=== PATIENT | female | born 1990 | race American Indian/Alaskan Native ===

== ENCOUNTER 2017-10-27 07:23 | Inpatient (IN) | payer MEDICAID ==
[2017-10-27] MEDS ORDERED: Rocuronium 50 MG/5 ML Vial ONE ×2 (07:47→10:57)
[2017-10-27] MEDS ORDERED: Ondansetron 4 MG/2 ML SDV ONE (07:47)
[2017-10-27] MEDS ORDERED: Propofol 200 MG/20 ML SDV ONE (07:47)
[2017-10-27] MEDS ORDERED: Dexamethasone 4 MG/ML SDV ONE (07:47)
[2017-10-27] MEDS ORDERED: Succinylcholine/Normal Saline 200 MG/10 ML Syringe ONE (07:49)
[2017-10-27] MEDS ORDERED: Neostigmine Methylsulfate 1 MG/ML 5 ML Syringe ONE (07:49)
[2017-10-27] MEDS ORDERED: Gabapentin 300 MG Cap PO ONE (08:00)
[2017-10-27] MEDS ORDERED: Acetaminophen 500 MG Tab PO ONE (08:00)
[2017-10-27] MEDS ORDERED: Scopolamine 1.5 MG Transdermal Patch TOP SCH (08:00)
[2017-10-27] MEDS ORDERED: Dextrose 5%-Lactated Ringers 1,000 ML IV SCH ×2 (08:00→14:00)
[2017-10-27] MEDS ORDERED: Celecoxib 200 MG Cap PO ONE (08:00)
[2017-10-27] MEDS ORDERED: Lactated Ringers 1,000 ML ONE (08:38)
[2017-10-27] MEDS ORDERED: Ropivacaine 60 ML, Dexamethasone 8 MG, EPINEPHrine 0.4 MG, Sodium Chloride 0.9% 17.6 ML NERVRT SCH ×4 (09:00)
[2017-10-27] MEDS ORDERED: Lidocaine 2% 100 MG/5 ML Syringe IVPUSH ONE (09:00)
[2017-10-27] MEDS ORDERED: Ketamine 500 MG/5 ML MDV IV SCH (09:00)
[2017-10-27] MEDS: cefOXitin 2 GM in Premix Bag 1 BAG IV ONE ×2 (09:57→13:29)
[2017-10-27] MEDS: cefOXitin 2 GM Vial ONE ×2 (10:45→11:47)
[2017-10-27] MEDS ORDERED: Sugammadex Sodium 200 MG/2 ML VIAL ONE (11:52)
[2017-10-27] MEDS ORDERED: fentaNYL 100 MCG/2 ML SDV IVPUSH ONE (12:11)
[2017-10-27] MEDS ORDERED: hydrOXYzine HCl 100 MG/2 ML SDV IM ONE (12:11)
[2017-10-27] MEDS: Lidocaine 0.4%/D5W 2 GM/500 ML BAG IV SCH (13:02)
[2017-10-27] MEDS: SCOPOLAMINE PATCH CHECK TOP SCH (13:46)
[2017-10-27] MEDS ORDERED: Labetalol 20 MG/4 ML Syringe IVPUSH PRN (14:00)
[2017-10-27] MEDS ORDERED: Metoclopramide 10 MG/2 ML SDV IVPUSH PRN (14:00)
[2017-10-27] MEDS ORDERED: hydrOXYzine HCl 100 MG/2 ML SDV IM PRN (14:00)
[2017-10-27] MEDS ORDERED: Ondansetron 4 MG/2 ML SDV IVPUSH PRN (14:00)
[2017-10-27] MEDS ORDERED: diphenhydrAMINE 50 MG/ML SDV IVPUSH PRN (14:00)
[2017-10-27] MEDS: Gabapentin 250 MG/5 ML Solution ML 470 ML Bottle PO SCH ×2 (14:41→20:17)
[2017-10-27] MEDS: cefOXitin 2 GM in Sodium Chloride 0.9% 50 ML IV SCH ×2 (15:12→20:18)
[2017-10-27] MEDS: Acetaminophen Soln 650 MG/20.3 ML UD Cup PO SCH ×2 (15:12→20:17)
[2017-10-27] MEDS ORDERED: Pantoprazole 40 MG Vial IVPUSH SCH (16:00)
[2017-10-27] MEDS ORDERED: MVI, Adult with Vitamin K 10 ML, Thiamine 200 MG, Chromium/Copper/Mang/Selen/Zn 1 ML in... IV SCH ×4 (16:00)
[2017-10-27] MEDS: Insulin Aspart 100 Units/ML 3 ML Pen SUBCUT PRN ×2 (16:58→22:04)
[2017-10-27] MEDS: Heparin Sodium 5,000 Units/ML Vial SUBCUT SCH (17:54)
[2017-10-28] MEDS ORDERED: Iohexol 647 MG/ML 50 ML SDV PO SCH (00:30)
[2017-10-28] MEDS: Lidocaine 0.4%/D5W 2 GM/500 ML BAG IV SCH (01:23)
[2017-10-28] MEDS: Acetaminophen Soln 650 MG/20.3 ML UD Cup PO SCH ×4 (03:55→22:05)
[2017-10-28] MEDS: cefOXitin 2 GM in Sodium Chloride 0.9% 50 ML IV SCH ×2 (03:55→08:44)
[2017-10-28] MEDS: Insulin Aspart 100 Units/ML 3 ML Pen SUBCUT PRN ×2 (04:01→09:54)
[2017-10-28] MEDS: Heparin Sodium 5,000 Units/ML Vial SUBCUT SCH ×2 (05:47→18:05)
[2017-10-28] MEDS ORDERED: Lactated Ringers 1,000 ML IV SCH (07:45)
[2017-10-28] MEDS: Celecoxib 200 MG Cap PO SCH (07:58)
[2017-10-28] MEDS: Gabapentin 250 MG/5 ML Solution ML 470 ML Bottle PO SCH ×3 (08:44→22:05)
[2017-10-28] MEDS: SCOPOLAMINE PATCH CHECK TOP SCH (08:44)
[2017-10-28] MEDS: Levothyroxine 100 MCG Tab PO SCH (08:45)
--- NOTE | 2017-10-28 09:09 | CR ---
UGI wo KUB HISTORY: Evaluate Kit-en-Y. COMPARISON: CT scan 06/09/2017. FINDINGS: Gastric remnant appears normal surgical drain present in this region. No extravasation seen . No obstruction. No evidence for complication.
[2017-10-28] MEDS ORDERED: Pantoprazole 40 MG Delayed-Release Granules 1 Packet PO SCH (16:00)
[2017-10-28] MEDS ORDERED: MVI, Adult with Vitamin K 10 ML, Thiamine 200 MG, Chromium/Copper/Mang/Selen/Zn 1 ML in... IV SCH ×4 (16:00)
--- NOTE | 2017-10-28 16:43 | PN ---
DATE OF SERVICE: 10/28/2017 The patient has been afebrile with stable vital signs and overall is doing well. Oral intake is fairly high. Blood sugars are running around in the 200s. We did check a hemoglobin A1c yesterday which came back at 7.2 documented that the patient is diabetic. At this point, I think today rather than starting any antidiabetic medication, we will switch her IV to LR and see what happens with the blood sugars. We will have the staff educator see the patient today as well. We will restart her Synthroid at somewhat higher doses as the most recent TSH was still somewhat high at around 6. Bienvenido Mckinney MD /[id number]
[2017-10-28] MEDS ORDERED: Ondansetron 4 MG Tab.DIS PO PRN (17:07)
[2017-10-29] MEDS: Acetaminophen Soln 650 MG/20.3 ML UD Cup PO SCH ×2 (04:10→08:15)
[2017-10-29] MEDS: Heparin Sodium 5,000 Units/ML Vial SUBCUT SCH (05:32)
[2017-10-29 07:28] VITALS: BP 104/58
[2017-10-29] MEDS: Celecoxib 200 MG Cap PO SCH (07:33)
[2017-10-29] MEDS: Levothyroxine 100 MCG Tab PO SCH (07:33)
[2017-10-29] MEDS: Gabapentin 250 MG/5 ML Solution ML 470 ML Bottle PO SCH (08:15)
[2017-10-29] MEDS: SCOPOLAMINE PATCH CHECK TOP SCH (08:16)
[2017-10-29] MEDS ORDERED: Cyanocobalamin (Vitamin B12) 1,000 MCG/ML SDV IM ONE (09:00)
--- NOTE | 2017-10-30 01:26 | DISCH ---
ADMISSION DIAGNOSES: Morbid obesity, impaired fasting glucose, nonalcoholic steatohepatitis, intrauterine device, tobacco use disorder in remission. DISCHARGE DIAGNOSES: 1. Status post Kit-en-Y gastric bypass surgery, liver biopsy, repair of diaphragmatic hernia, and excision of mediastinal lipoma for morbid obesity, hepatomegaly, diaphragmatic hernia, and mediastinal lipoma. Date of surgery, 10/27/2017. 2. New diagnosis diabetes type 2 confirmed by hemoglobin A1c of 7.2. HISTORY: Steffany Mckinney is a 27-year-old female with longstanding history of morbid obesity. After preoperative evaluation, discussion of possible risks, and possible complications, she wished to proceed with surgical procedure. HOSPITAL COURSE: Steffany had her hemoglobin A1c checked on admission, it was 7.2. Blood sugars were continued to be watched. She had no operative complications. On postop day #1, her upper GI was negative. She was started on a step-2 gastric bypass diet without cereal. On postop day #3, she was able to be discharged to home. Blood sugars were 129 and 126. Oral intake was adequate. Vital signs stable. She received adequate dietary and diabetic education. She was discharged on 10/29/2017 without any complications. PHYSICAL EXAMINATION: GENERAL: Steffany Mckinney is a 27-year-old female. VITAL SIGNS: Height is 5 feet 7 inches. Weight is 332 pounds. TPR is 98.1, 70, 16. Blood pressure 104/58. HEENT: Negative. NECK: Supple. HEART: Regular rate and rhythm. LUNGS: Clear. ABDOMEN: Incisions look good. 4x4 over KATY drain site. Abdominal binder is on. EXTREMITIES: Without peripheral edema. DISPOSITION: Discharged to home. CONDITION: Stable and improving. FOLLOWUP APPOINTMENTS: Melany Mendes PA-C on 11/05/2017 at 11 a.m. HOME MEDICATIONS: 1. Tylenol 650 mg q.6 hours for pain. 2. Celebrex 200 mg p.o. daily for 14 days. 3. Synthroid 100 mcg p.o. daily. 4. Zofran ODT 4 mg q.4 hours p.r.n. pain. DISCHARGE DIET: Step 2 gastric bypass diet without cereal. Drink 8 to 10 glasses of water a day. ACTIVITY: No lifting greater than 10 pounds for 2 weeks. Driving, do not drive for 1 week. Shower bathing, may shower. DISCHARGE INSTRUCTIONS: Notify provider if any fever, increased pain, nausea, or vomiting. Keep site clean and dry. Wear abdominal binder for 2 weeks and then as tolerated. SPECIAL INSTRUCTIONS: Is to use incentive spirometer 10 times every hour while awake and check blood sugars twice a day morning and before bed. Bring record of blood sugar results to clinic appointments. Keep the record of protein and water intake and bring to clinic appointments.
--- NOTE | 2017-10-30 09:24 | OR ---
DATE OF PROCEDURE: 10/27/2017 PREOPERATIVE DIAGNOSIS: Morbid obesity. POSTOPERATIVE DIAGNOSES: 1. Morbid obesity. 2. Marked hepatomegaly. 3. Paraesophageal diaphragmatic hernia. 4. Mediastinal lipoma. OPERATIVE PROCEDURE: 1. Laparoscopic Kit-en-Y gastric bypass with long limb gastroenterostomy (67131). 2. Bartolo-Cut needle liver biopsy (42718). 3. Repair of paraesophageal diaphragmatic hernia (23187). 4. Excision of mediastinal lipoma (66929). ANESTHESIA: General. BLENDER: Melany Mendes PA-C INDICATIONS FOR PROCEDURE: This is a 27-year-old female presenting with longstanding morbid obesity and increasingly significant comorbidities. After preoperative evaluation and discussion, she wished to proceed with a gastric bypass procedure. Potential risks of procedure including bleeding, infection, leaks from various GI tract closures, problems with bowel obstruction over time as well as possibility of cardiopulmonary, septic, or hemorrhagic complications leading to were discussed, and the patient wishes to proceed. DETAILS OF PROCEDURE: The patient was taken to the operating room, placed in a supine position. After general endotracheal anesthesia was induced, she was converted to a lithotomy position and an orogastric tube placed. The abdomen was then prepped and draped. At 15 cm inferior and 5 cm left of xiphoid process, a transverse incision was made and peritoneal cavity entered under direct vision with an Optiview trocar, inflated to 15 mmHg pressure with CO2. Laparoscope was reinserted. No underlying trocar insertion site injuries were seen. Following this, 5 additional trocars were placed across over mid abdomen, bilateral transversus abdominis plane blocks were placed using standard solution, with the location of the needle tip being directly visualized within the transversus abdominis plane. The liver was noted to be markedly fatty infiltrated and somewhat enlarged, 2 to 3 times normal. Bartolo-Cut biopsies were obtained from the left lobe of the liver. Minimal bleeding from the biopsy site was controlled with electrocautery. The omentum was then divided in midline up to the level of the transverse colon. This allowed identification of the small bowel with ligament of Treitz. Small bowel was then traced out 200 cm distal to that point, was divided transversely with a RENAE stapler. Small bowel was then traced out an additional 200 cm where the [id number] enteroenterostomy was accomplished with internal firing of the Endo-RENAE 60 mm stapler. The common opening was then closed transversely with the same stapler and angles anastomosed, and mesenteric defect approximated with some 0 Ethibond stitch along with 4 mL of fibrin sealant. The Kit limb was then mobilized in an antecolic fashion up to the level of the gastroesophageal junction without tension. The liver was retracted anteriorly. The patient was noted to have a moderate-sized paraesophageal diaphragmatic hernia. The peritoneum overlying this was incised and reflected downward. This was further dissected, mediastinal lipoma was encountered, and this was excised and sent as a pathologic specimen. The diaphragmatic hernia repair was accomplished with 0 Ethibond sutures reinforced with PTFE pledgets anteriorly. At this point, the gastrointestinal catheter was inflated with 15 mL and pulled up snugly against the EG junction, gastric wall over the apex balloon was marked with electrocautery, and balloon catheter deflated, pulled up into the esophagus. The lesser omental tissue adjacent to the gastric cardia was incised allowing dissection behind the stomach at that level. Pouch formation was initiated with a transverse firing of the RENAE stapler at the level of the cauterized yvrose on the gastric cardia and then completed with some additional RENAE staple firings, up to and through the angle of His. Upon completion of the pouch, both staple lines were noted to be intact. The anvil of a 25 mm EEA stapler was attached to Dallas sump type tube; it was brought down through the mouth and taken out through a small opening in the gastric pouch allowing the anvil to be likewise pulled down to within the gastric pouch. Divided end of the Kit limb was then opened and the main body EEA stapler passed several centimeters in to the lumen of the small bowel, brought up to the anvil, thus creating the gastrojejunostomy. Upon removal of stapler, double donuts of mucosa were noted within the small bowel, was closed off with a vascular staple line. Gastrojejunostomy was reinforced with some 0 Ethibond seromuscular stitch along with 4 mL of fibrin sealant. The leak test was accomplished with injection of 120 mL of air in the gastric pouch while submerged with cefoxitin-containing saline solution. No leaks were identified. A single Ken-Minaya drain was then placed adjacent to gastrojejunostomy, taken out through subcostal trocar sites with no further problems noted. Trocars were removed and the peritoneal cavity was deflated. Incisions were closed with some 4-0 Vicryl skin stitch which was also used to fix the drain. Dressing was applied. The patient was taken to the recovery room in satisfactory condition. There were no evident complications. Physician photo studio assistant, Melany Mendes, played an essential role in assisting in this case, helping to position the patient, retract structures as needed, and suturing and cutting sutures as indicated. Her presence improved patient safety and decreased operative time. Bienvenido Mckinney MD /[id number]
== END 2017-10-29 10:10 | disposition home or self-care (01) | DRG 621 ==
LOC: JP.SDS 07:23 → JP.MS 07:23 → EDSTATUS 13:00 → JP.2SS 13:31
PROVIDERS: ADMIT Surgery; ATTEND Surgery
PROC: 0D164ZA Bypass Stomach to Jejunum, Percutaneous Endoscopic Approach (ICD-10-PCS; principal; 2017-10-27)
PROC: 0BQT4ZZ Repair Diaphragm, Percutaneous Endoscopic Approach (ICD-10-PCS; 2017-10-27)
PROC: 0FB24ZX Excision of Left Lobe Liver, Percutaneous Endoscopic Approach, Diagnostic (ICD-10-PCS; 2017-10-27)
PROC: 0WBC4ZX Excision of Mediastinum, Percutaneous Endoscopic Approach, Diagnostic (ICD-10-PCS; 2017-10-27)
PROC: 3E0T3BZ Introduction of Anesthetic Agent into Peripheral Nerves and Plexi, Percutaneous Approach (ICD-10-PCS; 2017-10-27)
DX: E66.01 Morbid (severe) obesity due to excess calories (principal); Z68.43 Body mass index [BMI] 50.0-59.9, adult; K44.9 Diaphragmatic hernia without obstruction or gangrene; K75.81 Nonalcoholic steatohepatitis (NASH); E11.9 Type 2 diabetes mellitus without complications; E03.9 Hypothyroidism, unspecified; D17.4 Benign lipomatous neoplasm of intrathoracic organs; Z87.891 Personal history of nicotine dependence
CPT/HCPCS: 36415; 74240; 74240-26; 82962; 83036; 86850; 86900; 86901; 88304; 88305; 88307; 88313; 88342; 94762; A9270-GY; C9113; C9399; J0171; J0694; J1100; J1644; J2001; J2405; J2704; J2795; J3010; J3410; J3411; J3420; J7030; J7040; J7042; J7050; J7120; Q9967

== ENCOUNTER 2017-12-19 06:33 | Day surgery (SDC) | payer MEDICAID ==
[2017-12-19] MEDS ORDERED: Cyanocobalamin (Vitamin B12) 1,000 MCG/ML SDV IM ONE (07:15)
[2017-12-19] MEDS ORDERED: Lactated Ringers 1,000 ML IV SCH (07:15)
[2017-12-19] MEDS ORDERED: Midazolam 1 MG/ML 2 ML SDV ONE (07:24)
[2017-12-19] MEDS ORDERED: fentaNYL 100 MCG/2 ML SDV ONE (07:24)
[2017-12-19] MEDS ORDERED: Propofol 200 MG/20 ML SDV ONE (07:24)
[2017-12-19] MEDS ORDERED: Glycopyrrolate 0.2 MG/ML 2 ML SDV IVPUSH ONE (07:30)
[2017-12-19] MEDS ORDERED: MVI, Adult with Vitamin K 10 ML, Thiamine 100 MG, Chromium/Copper/Mang/Selen/Zn 1 ML in... IV ONE ×4 (08:15)
[2017-12-19 10:34] VITALS: BP 95/58
--- NOTE | 2017-12-25 14:50 | OR ---
DATE OF PROCEDURE: 12/19/2017 PREOPERATIVE DIAGNOSIS: Strictured gastrojejunostomy. POSTOPERATIVE DIAGNOSIS: Strictured gastrojejunostomy. OPERATIVE PROCEDURE: Upper GI endoscopy with dilation of gastrojejunostomy (28778). ANESTHESIA: IV sedation. INDICATION FOR PROCEDURE: This is a 27-year-old status post Kit-en-Y gastric bypass, presenting with stricturing at her gastrojejunostomy. Plan is to proceed with an upper GI endoscopy with dilation as indicated. Potential risks including bleeding and perforation were discussed, and the patient wishes to proceed. DESCRIPTION OF PROCEDURE: The patient was taken to the operating room and placed in a left lateral decubitus position. IV sedation was administered, after which the upper GI endoscope was passed orally through the length of the esophagus and into the gastric pouch. The patient was noted to have moderate stricture present. A Bard gastrointestinal balloon catheter was centered across the anastomosis and inflated to 45-Setswana size, this was held in position for 1 minute, after which the balloon catheter was deflated and withdrawn. The scope could easily then be passed through the anastomosis. No complications were noted. The scope was then withdrawn. The procedure concluded. The patient was taken to the recovery room in a satisfactory condition. The patient was noted preoperatively to have a fairly darkly pigmented mole on the right side of her neck and it was recommended that be excised. She will be set up for followup with excision of that mole in the clinic. Bienvenido Mckinney MD /[id number]
== END 2017-12-19 10:59 | disposition home or self-care (01) ==
LOC: JP.SDS 06:33
PROVIDERS: ATTEND Surgery
DX: K95.89 Other complications of other bariatric procedure (principal); Z87.891 Personal history of nicotine dependence; Z88.8 Allergy status to other drugs, medicaments and biological substances
CPT/HCPCS: 43245; J2250; J2704; J3010; J3411; J3420; J7120; J3490

== ENCOUNTER 2019-02-01 14:21 | Emergency (ER) | payer MEDICAID, OTHER ==
[2019-02-01 14:53] VITALS: BP 123/44
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
[2019-02-04 03:08] LABS: CHLAMYDIA TRACHOMATIS, NAA Negative (Negative); NEISSERIA GONORRHOEAE, NAA Negative (Negative)
== END 2019-02-01 16:03 | disposition home or self-care (01) ==
LOC: JP.ED 14:21
DX: Z20.2 Contact with and (suspected) exposure to infections with a predominantly sexual mode of transmission (principal); F17.210 Nicotine dependence, cigarettes, uncomplicated; Z79.899 Other long term (current) drug therapy; Z88.5 Allergy status to narcotic agent
CPT/HCPCS: 87491; 87591; 99284

== ENCOUNTER 2020-04-24 05:34 | Inpatient (IN) | payer MEDICAID ==
[2020-04-24] MEDS ORDERED: Lactated Ringers 1,000 ML IV SCH (06:30)
[2020-04-24] MEDS ORDERED: Oxytocin 10 Units/1 ML SDV ONE ×2 (06:35→07:04)
[2020-04-24] MEDS ORDERED: cefOXitin 1 GM Vial ONE (06:36)
[2020-04-24] MEDS ORDERED: cefOXitin 2 GM Vial ONE (07:05)
[2020-04-24] MEDS ORDERED: cefOXitin 2 GM in Sodium Chloride 0.9% 50 ML IV ONE (07:15)
[2020-04-24] MEDS ORDERED: ePHEDrine 50 MG/ML SDV ONE (07:29)
[2020-04-24] MEDS ORDERED: Sodium Chloride 0.9% 10 ML ONE (07:32)
[2020-04-24] MEDS ORDERED: Phenylephrine 1% 10 MG/ML SDV ONE (07:32)
[2020-04-24] MEDS ORDERED: Naloxone 0.4 MG/ML SDV IVPUSH PRN (07:33)
[2020-04-24] MEDS ORDERED: HYDROmorphone/Normal Saline 15 MG/30 ML PCA IV PRN (07:33)
[2020-04-24] MEDS ORDERED: diphenhydrAMINE 25 MG Cap PO PRN (07:33)
[2020-04-24] MEDS ORDERED: diphenhydrAMINE 50 MG/ML SDV IVPUSH PRN (07:33)
[2020-04-24] MEDS ORDERED: Ondansetron 4 MG/2 ML SDV IVPUSH PRN ×2 (07:33→09:47)
[2020-04-24] MEDS ORDERED: Glycopyrrolate 0.2 MG/ML 5 ML MDV ONE (07:34)
[2020-04-24] MEDS ORDERED: Lactated Ringers 1,000 ML ONE (07:48)
[2020-04-24] MEDS ORDERED: Naloxone 0.4 MG/ML SDV IV PRN (08:00)
[2020-04-24] MEDS: Cyanocobalamin (Vitamin B12) 1,000 MCG/ML SDV IM SCH (10:41)
[2020-04-24] MEDS: Sodium Ferric Gluconate Cmplex 250 MG in Sodium Chloride 0.9% 100 ML IV SCH (10:53)
[2020-04-24] MEDS: metroNIDAZOLE 250 MG Tab PO SCH ×2 (10:59→21:29)
[2020-04-24] MEDS: Ibuprofen 600 MG Tab PO SCH ×3 (11:00→21:28)
[2020-04-24] MEDS: Acetaminophen 500 MG Tab PO SCH ×3 (11:01→21:30)
[2020-04-24] MEDS: [UNRECOGNIZED DRUG - OTHER] IV SCH ×8 (16:24→23:40)
[2020-04-24] MEDS: DEXTROSE 5% IV SCH ×8 (16:24→23:40)
[2020-04-24] MEDS: MVI IV SCH ×8 (16:24→23:40)
[2020-04-24] MEDS: LACTATED RINGERS IV SCH ×8 (16:24→23:40)
[2020-04-24] MEDS: VITAMIN K IV SCH ×8 (16:24→23:40)
[2020-04-24] MEDS: cefOXitin 2 GM in Sodium Chloride 0.9% 50 ML IV SCH ×2 (16:26→21:29)
[2020-04-25] MEDS ORDERED: Dextrose 5%-Lactated Ringers 1,000 ML IV SCH ×2 (02:00→07:15)
[2020-04-25] MEDS: cefOXitin 2 GM in Sodium Chloride 0.9% 50 ML IV SCH (02:41)
[2020-04-25] MEDS: Ibuprofen 600 MG Tab PO SCH ×4 (05:05→22:04)
[2020-04-25] MEDS: Acetaminophen 500 MG Tab PO SCH ×4 (05:06→22:04)
[2020-04-25] MEDS ORDERED: Ondansetron 4 MG Tab.DIS PO PRN (07:02)
[2020-04-25] MEDS: HYDROmorphone 2 MG Tab PO PRN ×3 (09:45→17:48)
[2020-04-25] MEDS: Cyanocobalamin (Vitamin B12) 1,000 MCG/ML SDV IM SCH (10:18)
[2020-04-25] MEDS: metroNIDAZOLE 250 MG Tab PO SCH ×2 (10:18→20:00)
[2020-04-25] MEDS: Docusate Sodium 100 MG Cap PO SCH ×2 (10:19→20:00)
[2020-04-25] MEDS: Sodium Ferric Gluconate Cmplex 250 MG in Sodium Chloride 0.9% 100 ML IV SCH (11:39)
[2020-04-25] MEDS ORDERED: Lanolin 100% Cream 40 GM Tube TOP PRN (11:48)
--- NOTE | 2020-04-25 12:04 | PN ---
DATE OF SERVICE: 04/25/2020 SUBJECTIVE: Steffany is postoperative day #1 following a section. Pain is controlled using the COPY AND PRINT ASSOCIATE. She received 1 dose of IV iron and will receive the second one today for a ferritin of 21. Her B12 was 262, so she is receiving B12 of 1000 mcg IM injection. Vital signs have been stable. No fever. Oral intake 1040. Urine output via Amaya catheter is 1860. REVIEW OF SYSTEMS: Remainder of review of systems negative for any pertinent positives and negatives. OBJECTIVE: GENERAL: Steffany Mckinney is a pleasant 30-year-old female. She is alert and orientated. Color pale. VITAL SIGNS: TPR at 0300; 97, 66, 16, blood pressure 90/46. HEENT: Negative. NECK: Supple. HEART: Regular rate and rhythm. LUNGS: Clear. ABDOMEN: Dressings dry and intact. EXTREMITIES: Without peripheral edema. ASSESSMENT: section with delivery of viable female. Date 04/24/2020. PLAN: 1. Discontinue Amaya. 2. Regular diet. 3. Decrease IV to 100 mL per hour. 4. Colace 100 mg b.i.d. 5. May shower. 6. Dilaudid 2 mg 1 to 2 q.4 hours p.r.n. pain. We will be available if the patient decides that she wants to switch to oral pain medication instead of using the COPY AND PRINT ASSOCIATE. 7. Zofran ODT 4 mg every 4 hours p.r.n. nausea. 8. Continue use of incentive spirometer. 9. We will evaluate p.r.n. or in a.m. Melany Mendes PA-C /[id number]
[2020-04-26] MEDS: HYDROmorphone 2 MG Tab PO PRN (01:12)
[2020-04-26] MEDS: Acetaminophen 500 MG Tab PO SCH ×2 (05:41→09:11)
[2020-04-26] MEDS: Ibuprofen 600 MG Tab PO SCH ×2 (05:41→09:11)
[2020-04-26 09:08] VITALS: BP 107/61; PULSE 68
[2020-04-26] MEDS: metroNIDAZOLE 250 MG Tab PO SCH (09:11)
[2020-04-26] MEDS: Docusate Sodium 100 MG Cap PO SCH (09:11)
--- NOTE | 2020-04-26 13:02 | PN ---
DATE OF SERVICE: 04/26/2020 SUBJECTIVE: Steffany is postoperative day #2 following a section. She did have a bowel movement. Vital signs have been stable. Up, ambulating. Pain is controlled. REVIEW OF SYSTEMS: Remainder of review of systems negative for any pertinent positives and negatives. OBJECTIVE: GENERAL: Stfefany Mckinney is a pleasant 30-year-old female, alert and orientated. VITAL SIGNS: TPR at 01:51, 97.4; 62; 16; blood pressure 99/50. HEENT: Negative. NECK: Supple. HEART: Regular rate and rhythm. LUNGS: Clear. ABDOMEN: Incision looks good. EXTREMITIES: Without peripheral edema. ASSESSMENT: section. PLAN: We will evaluate p.r.n. or in a.m. Discharge pending condition of baby. Melany Mendes PA-C /[id number]
--- NOTE | 2020-04-26 13:16 | DISCH ---
ADMISSION DIAGNOSES: 1. Term . 2. Kit-en-Y gastric bypass surgery. 3. Unspecified surgical malabsorption. 4. B12 deficiency. 5. Impaired fasting blood sugar. DISCHARGE DIAGNOSES: section with delivery of viable baby girl, 04/24/2020. HISTORY: Steffany Mckinney is a pleasant 30-year-old female with history of previous . She is term . After preoperative evaluation, discussion of possible risks and possible complications, she wished to proceed with surgical procedure. HOSPITAL COURSE: Steffany had her on 04/24/2020. She had no operative complications with a ferritin of 21 and post Kit-en-Y gastric bypass surgery, she received 2 doses of IV iron. Her pain was well managed with oral medication. She received B12 1000 mcg IM injection. Vital signs stable. Oral intake adequate. Output adequate. She had a bowel movement. She is able to be discharged on postoperative day #2. PHYSICAL EXAMINATION: GENERAL: Steffany Mckinney is a pleasant 30-year-old female. VITAL SIGNS: Height is 5 feet 6.93 inches, weight is 235 pounds. TPR at 0051 is 97.4; 62; 16; blood pressure 99/50. HEENT: Negative. NECK: Supple. HEART: Regular rate and rhythm. LUNGS: Clear. ABDOMEN: incision looks good. EXTREMITIES: Without peripheral edema. NEUROLOGIC: Intact. DISPOSITION: Discharged to home. CONDITION: Stable and improving. FOLLOWUP: Followup appointment, Sydnee Gonzalez, certified nurse safety intern, appointment to be made, and with Melany Mendes PA-C, surgical department, 05/04/2020 at 11 a.m. HOME MEDICATIONS: 1. Dilaudid 2 mg every 6 hours p.r.n. pain #28. 2. Tylenol Extra Strength 1000 mg p.o. q.i.d. 3. She is to resume her routine recommended vitamins for status post Kit-en-Y gastric bypass surgery. DIET: Usual diet as tolerated. Drink 8 to 10 glasses of water a day. ACTIVITY: No lifting greater than 10 pounds for 6 weeks or with exception of baby in car seat. Driving: Do not drive for 1 week or while on pain medication. Shower/bathing: May shower. No tub bathing or swimming for 6 to 8 weeks. DISCHARGE INSTRUCTIONS: Keep operative site clean and dry. Notify provider if any fever, increased pain, swelling, redness, drainage, nausea, vomiting.
--- NOTE | 2020-04-26 14:07 | OR ---
DATE OF PROCEDURE: 04/24/2020 SURGEON: Bienvenido Mckinney MD PREOPERATIVE DIAGNOSIS: Term with history of previous section. POSTOPERATIVE DIAGNOSES: 1. Term with history of previous section. 2. Incarcerated incisional hernia. OPERATIVE PROCEDURES: 1. Repeat section (94706). 2. Repair of incarcerated incisional hernia (47690). ANESTHESIA: Spinal. INDICATIONS FOR PROCEDURE: This is a 30-year-old female, presenting with term with history of previous section. After preoperative evaluation and discussion, she wished to proceed with a repeat section. Potential risks of the procedure including bleeding, infection, injury to underlying mother or baby were reviewed, and the patient wishes to proceed. DETAILS OF PROCEDURE: The patient was taken to the operating room and placed in a supine position. After spinal anesthetic had been placed and a roll positioned underneath the right hip, Amaya catheter was inserted, and the abdomen prepped and draped. Previous Pfannenstiel incision was then reused and carried down through the skin and subcutaneous tissue and through the external oblique aponeurosis, subaponeurotic flaps were then raised superiorly and inferiorly. During the course of this, the patient was noted to have a prolapse of some omentum between the leaves of the rectus muscle consistent with an incarcerated hernia at that level. This was dissected free as the midline separation of the rectus musculature was established and the omentum which was incarcerated was returned back up into the peritoneal cavity. At that point, the peritoneal reflection of the bladder on the uterus was then divided and reflected downward and a transverse uterine incision was made and a viable female was delivered through a vertex presentation. Cord was clamped and cut and routine care given off the field. The patient was given IV and intrauterine oxytocin and IV cefoxitin. Good uterine contractions were noted and the placenta was delivered without difficulty. The uterus was then closed with 2 layers of 2-0 Vicryl stitch as was the peritoneal reflection of the bladder on the uterus. The area of herniation was closed with a running #2 Vicryl stitch closing the areas of the rectus muscle along its length between the area of the herniation. Over this, the external oblique aponeurosis was reapproximated later with a #2 Vicryl stitch as well. The subcutaneous tissue was irrigated with cefoxitin containing saline solution and subcutaneous tissue approximated with 3-0 and 4-0 Vicryl stitch deep and a 4-0 Vicryl subcuticular stitch, after which Dermabond was applied. The patient was taken to the recovery room in satisfactory condition. There were no evident complications. ADDENDUM: MACHINE JOINER CEMENTER: Sydnee Gonzalez CNM. Bienvenido Mckinney MD /[id number]
--- NOTE | 2020-05-15 09:52 | OR ---
DATE OF PROCEDURE: 04/24/2020 SURGEON: Bienvenido Mckinney MD ADDENDUM: PASTE UP COPY CAMERA OPERATOR: Sydnee Gonzalez CNM Per ACOG guidelines, a recruitment assistant is necessary for this procedure. Bienvenido Mckinney MD /[id number]
== END 2020-04-26 11:00 | disposition home or self-care (01) | DRG 787 ==
LOC: JP.SDS 05:34 → JP.MS 07:56
PROVIDERS: ADMIT Advanced Practice Midwife; ATTEND Surgery
PROC: 10D00Z1 Extraction of Products of Conception, Low, Open Approach (ICD-10-PCS; principal; 2020-04-24)
PROC: 0WQF0ZZ Repair Abdominal Wall, Open Approach (ICD-10-PCS; 2020-04-24)
DX: O34.211 Maternal care for low transverse scar from previous cesarean delivery (principal); K43.0 Incisional hernia with obstruction, without gangrene; K91.2 Postsurgical malabsorption, not elsewhere classified; Z37.0 Single live birth; O99.62 Diseases of the digestive system complicating childbirth; Z3A.38 38 weeks gestation of pregnancy; Z98.84 Bariatric surgery status; O99.89 Other specified diseases and conditions complicating pregnancy, childbirth and the puerperium; E53.8 Deficiency of other specified B group vitamins
CPT/HCPCS: 36415; 59409; 80305-QW; 82607; 82728; 82746; 85460; 86850; 86900; 86901; 88307; 94762; A9270-GY; J0694; J1170; J2370; J2590; J2790; J2916; J3411; J3420; J3490; J7030; J7050; J7120; J7121

== ENCOUNTER 2022-07-26 16:02 | Emergency (ER) | payer MEDICAID ==
[2022-07-26] MEDS ORDERED: Ketorolac 30 MG/ML SDV IM ONE (17:23)
[2022-07-26] MEDS ORDERED: Cyclobenzaprine 10 MG Tab PO ONE (17:23)
[2022-07-26] MEDS ORDERED: HYDROmorphone 0.5 MG/0.5 ML Syringe IVPUSH ONE (19:02)
[2022-07-26] MEDS ORDERED: cefTRIAXone 2 GM in Sodium Chloride 0.9% 50 ML IV ONE (19:02)
[2022-07-26] MEDS ORDERED: Sodium Chloride 0.9% 10 ML Syringe FLUSH PRN (19:02)
[2022-07-26 19:14] VITALS: BP 112/67; PULSE 101
[2022-07-26] MEDS ORDERED: Sodium Chloride 0.9% 1,000 ML IV SCH (19:15)
[2022-07-26 19:37] LABS: ESTIMATED GFR 87 mL/min (>60)
== END 2022-07-26 21:14 ==
LOC: JP.ED 16:02
DX: N13.2 Hydronephrosis with renal and ureteral calculous obstruction (principal); N39.0 Urinary tract infection, site not specified; E03.9 Hypothyroidism, unspecified; E66.9 Obesity, unspecified; Z88.5 Allergy status to narcotic agent; Z68.34 Body mass index [BMI] 34.0-34.9, adult; Z20.822 Contact with and (suspected) exposure to COVID-19
CPT/HCPCS: 36415; 74176; 80053; 81001; 83605; 85025; 87086; 87088; 87186; 87635; 96365; 96372; 96375; 99284; A9270; J0696; J1170; J1885; J7030; U0002

== ENCOUNTER 2022-08-04 10:59 | Emergency (ER) | payer MEDICAID ==
[2022-08-04 11:17] VITALS: BP 142/90; PULSE 104
[2022-08-04] MEDS ORDERED: Ibuprofen 400 MG Tab PO ONE (12:17)
== END 2022-08-04 12:30 | disposition home or self-care (01) ==
LOC: JP.ED 10:59
DX: N13.2 Hydronephrosis with renal and ureteral calculous obstruction (principal); N39.0 Urinary tract infection, site not specified; R31.9 Hematuria, unspecified; J45.909 Unspecified asthma, uncomplicated; E66.9 Obesity, unspecified; Z68.33 Body mass index [BMI] 33.0-33.9, adult; Z88.5 Allergy status to narcotic agent; Z79.899 Other long term (current) drug therapy
CPT/HCPCS: 81001; 99284; A9270